=== PATIENT | male | born 1985 | race Hispanic/Latino ===

== ENCOUNTER 2019-04-26 02:02 | Emergency (ER) | payer MEDICAID, OTHER ==
[2019-04-26 02:38] LABS: BASOPHILS % (AUTO) 0.6 % (0.0-5.0); EOSINOPHILS % (AUTO) 1.8 % (0.0-8.0); LYMPHOCYTES % (AUTO) 28.5 % (21.0-51.0); MEAN CORPUSCULAR HEMOGLOBIN 32.5 pg (27.0-33.0); MEAN CORPUSCULAR HGB CONC 34.3 g/dL (32.0-36.0); MEAN CORPUSCULAR VOLUME 94.8 fL (79-99); MONOCYTES % (AUTO) 6.6 % (3.0-13.0); NEUTROPHILS % (AUTO) 62.5 % (40.0-77.0); NUCLEATED RED BLOOD CELLS 0.2 % (0.0-0.19); PLATELET COUNT (AUTO) 299 K/uL (130-400); RED BLOOD CELL COUNT(AUTO) 4.96 MIL/uL (4.50-6.20); RED CELL DISTRIBUTION WIDTH 13.8 % (11.0-15.5); WHITE BLOOD COUNT (AUTO) 19.8 K/uL (4.8-10.8)
[2019-04-26] MEDS ORDERED: TRAMADOL HCL 50 MG TABLET ONE (03:05)
[2019-04-26] MEDS ORDERED: KETOROLAC TROMETHAMINE 30MG/ML ONE (03:05)
[2019-04-26 03:11] LABS: CREATININE 1.1 mg/dL (0.5-1.5)
[2019-04-26 03:16] LABS: ALBUMIN 3.3 g/dL (3.5-5.0); BILIRUBIN,TOTAL 0.3 mg/dL (0.2-1.0); TOTAL PROTEIN, SERUM 7.5 g/dL (6.0-8.3)
[2019-04-26] MEDS ORDERED: METRONIDAZOLE 500MG/100ML BAG 100 ML ONE (04:34)
== END 2019-04-26 05:30 | disposition home or self-care (01) ==
LOC: EDH 02:02
DX: K02.9 Dental caries, unspecified (principal); R03.0 Elevated blood-pressure reading, without diagnosis of hypertension; E11.9 Type 2 diabetes mellitus without complications; Z79.84 Long term (current) use of oral hypoglycemic drugs; Z79.899 Other long term (current) drug therapy; Z98.890 Other specified postprocedural states
CPT/HCPCS: 36415; 70486; 80053; 85025; 96365; 96375; 99285; J1885; J3490

== ENCOUNTER 2022-10-18 08:04 | Emergency (ER) | payer OTHER ==
[~2022-10-18] VITALS: Ht 182.9 cm; Wt 222.4 kg
[~2022-10-18 08:04] MED LIST: ATOR10 PO; LISI5TAB21 PO; METF-446 PO
[2022-10-18] MEDS ORDERED: NAPR375T6 PO (12:06)
[2022-10-18] MEDS ORDERED: CEPH500B PO (12:06)
[2022-10-18 12:33] VITALS: BP 169/89
== END 2022-10-18 12:30 | disposition home or self-care (01) ==
LOC: EDH 08:04
DX: S80.12XA Contusion of left lower leg, initial encounter (principal); S70.12XA Contusion of left thigh, initial encounter; E11.9 Type 2 diabetes mellitus without complications; Z79.899 Other long term (current) drug therapy; Z79.84 Long term (current) use of oral hypoglycemic drugs; Z98.890 Other specified postprocedural states; X58.XXXA Exposure to other specified factors, initial encounter; Y93.89 Activity, other specified; Y92.89 Other specified places as the place of occurrence of the external cause; Y99.8 Other external cause status
CPT/HCPCS: 73552; 76882; 93005; 93971